=== PATIENT | female | born 2000 | race African-American/Black ===

== ENCOUNTER 2023-09-18 16:23 | Emergency (ER) | payer SELFPAY ==
[2023-09-18 16:25] VITALS: BP 143/101
[2023-09-18 16:57] VITALS: BP 131/73
[2023-09-18 17:30] LABS: % Basophils 0.7 % (0-2); % Eosinophils 1.3 % (0-6); % Immature Granulocytes 0.3 % (0-0.5); % Lymphocytes 45.2 % (20.5-51.1); % Monocytes 7.9 % (1.7-9.3); % Neutrophils 44.6 % (42.2-75.2); Absolute Basophils 0.1 10^3/uL (0-0.2); Absolute Eosinophils 0.1 10^3/uL (0-0.7); Absolute Lymphocytes 3.2 10^3/uL (1.2-3.4); Absolute Monocytes 0.6 10^3/uL (0.1-0.6); Absolute Neutrophils 3.2 10^3/uL (1.4-6.5); Hematocrit 39.1 % (37.0-47.0); Hemoglobin 13.6 g/dL (12.0-16.0); Mean Corp Hgb Conc. 34.8 g/dL (33.0-37.0); Mean Corpuscular Hgb 28.2 pg (27.0-31.0); Mean Corpuscular Volume 81.1 fL (81.0-99.0); Mean Platelet Volume 10.8 fL (7.4-10.4); Nucleated Red Blood Cells % 0 %; Platelet Count 236 10^3/uL (130-400); Red Blood Cell Count 4.82 10^6/uL (4.20-5.40); Red Cell Dist. Width 13.9 % (11.5-14.5); White Blood Cell Count 7.1 10^3/uL (4.8-10.8)
[2023-09-18 17:36] LABS: HCG, Serum Qualitative Screen Negative
[2023-09-18 17:40] LABS: ALT (SGPT) 19 U/L (0-35); AST (SGOT) 39 U/L (14-36); Albumin 4.8 g/dl (3.5-5.0); Alkaline Phosphatase 78 U/L (38-126); Blood Urea Nitrogen 9 mg/dl (7-17); Calcium 10.2 mg/dl (8.4-10.2); Carbon Dioxide 21 mmol/L (22-30); Chloride 107 mmol/L (98-107); Glucose 80 mg/dl (70-99); Potassium 3.4 mmol/L (3.5-5.1); Sodium 137 mmol/L (135-145); Total Bilirubin 1.4 mg/dl (0.2-1.3); Total Protein 7.6 g/dl (6.3-8.2); eGFR > 60.00
[2023-09-18] MEDS: NSS 1000 IV (17:43)
[2023-09-18 17:58] LABS: Creatine Phosphokinase 466 U/L (30-135)
[2023-09-18 18:05] VITALS: BP 138/85
[2023-09-18 18:45] LABS: D-Dimer 0.31 ug/mlFEU (0.00-0.50)
--- NOTE | 2023-09-18 18:45 | ED.GENMED ---
History of Present Illness
General
Chief Complaint: Breathing Problem
Source: patient
Exam Limitations: none
Time Seen by Provider: 09/18/23 16:46
Nursing documentation reviewed up to this point in time: agreed with
History of Present Illness
History of Present Illness:
23 y/o F
no sig pmh
but she has had some syncope in the past occasionally
here with tingling in hands and feet and feeling fatigued/lightheaded while workin gin the heat today
she says that she was feeling overheated, then got tingly and lowered herself to the ground, no syncope
went to her truck (130 pm) and ate and sat in the cool air
felt better for an hour before having another episode where she felt overheated, a little lightheaded, tingling and sob then says she thinks she passed out int he back of her truck
now feels better, still has some tingling in hands and feet and is nervous baout being in the ER
she denied drug/alcohol use to me but told rn that she uses marijuana and alcohol sometimes
not intoxicated
no h/o dvt/pe
no cp, sob, abdomianl pain, fever, chills, seizure history, weakness, neck pain, vision changes
Past History
Social History
Tobacco: Non-smoker
Alcohol: Occasional
Drug: Marijuana
Review of Systems
Review of Systems
Allergies reviewed?: Yes
All Other Systems: Not applicable
Phy Exam
Physical Exam
Physical Exam:
GENERAL: Alert , in no apparent distress, very wlel appearing
EYE: pupils equal and reactive
NECK: Supple
ENT: o/p clr, mmm.
CARDIAC: Regular rate and rhythm .no murmur
LUNGS: Clear breath sounds bilaterally, no acute respiratory distress, no wheezes/rales/rhonchi
ABDOMEN: Soft, without focal tenderness, no r/g, no cvat, normal bowel sounds
NEUROLOGICAL: Alert and oriented, no focal neuro deficits, sensation intact
SKIN: Warm and dry, skin intact.
MUSCULOSKELETAL: No edema, well perfused. neg shawn's sign
PSYCH: Normal and appropriate interaction.
Course
Orders/Labs/Results
Orders:
Orders
09/18/23 17:05
Test Result ONCE
09/18/23 17:07
CBC/With Diff [Complete Blood Count/With Diff] Urgent
CMP [Comprehensive Metabolic Panel] Urgent
Creatine Phosphokinase Urgent
Comment: ADD ON
HCG, Serum Qualitative Screen Urgent
Magnesium Urgent
Comment: ADD ON
09/18/23 17:16
0.9% Sodium Chloride 1000 ml [Nss] 1,000 ml IV BOLUS
09/18/23 17:17
Electrocardiogram (*1) Urgent
Reason for Study: Syncope
EKG- Treatment ONCE
09/18/23 17:44
Add On- LAB Urgent
Tests Added?: magnesium, cpk
09/18/23 18:03
D-Dimer Urgent
09/18/23 18:51
Potassium Chloride Powder [Klor-Con] 20 meq PO NOW STA
Abnormal Lab Results
09/18/23
17:07
MPV 10.8 H fL
(7.4-10.4)
Potassium 3.4 L mmol/L
(3.5-5.1)
Carbon Dioxide 21 L mmol/L
(22-30)
Total Bilirubin 1.4 H mg/dl
(0.2-1.3)
AST 39 H U/L
(14-36)
Creatine Kinase 466 H U/L
(30-135)
09/18/23 17:07
09/18/23 17:07
Vital Signs
Initial and Last Documented VS:
Initial Vital Signs
Temp Pulse Resp BP Pulse Ox
97.7 F 92 20 143/101 100
09/18/23 16:25 09/18/23 16:25 09/18/23 16:25 09/18/23 16:25 09/18/23 16:25
Last Documented Vital Signs
Temp Pulse Resp BP Pulse Ox
97.7 F 54 20 138/78 98
09/18/23 16:25 09/18/23 19:00 09/18/23 19:00 09/18/23 19:00 09/18/23 19:00
MDM/Problems Addressed
Differential Diagnosis Includes:
heat exhaustion, near syncope, orthostasis, electrolyte disturbance, PE
MDM/Problems Addressed:
23 y/o F with tingling/lightheaded and then near syncope/syncope today
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
she feels better now
no cardiac history
no fhx of cardiac issues
pt is wel appearing
neuro intact
no signs of trauma
cv normal
ekg nonsichemic sinus jaden with sinus arrhythmia
k 3.4 normal mag
cpk 400s
d dimer pending
will hydraate, give oral dose of potassium and likely d/c home\\
pt ate food, feels better
d/c home d dimer neg
*Critical Care Note
Total Time (30-74mins, 75-104mins- exclusive of procedures): Not Applicable
ED Attending Note
-
Portions of this chart may have been created with voice recognition software.� Occasional wrong word or��sound alike� substitutions may have occurred due to the inherent limitations of voice recognition software.
Discharge Plan
Departure
Patient Disposition: Home (Routine Discharge)
Date of Disposition: 09/18/23
Time of Disposition: 18:55
Patient with high blood pressure during this ER visit?: No
Condition: Fair
Covid-19: Not Applicable
Discharge Problem:
Near syncope, Heat exhaustion
Instructions: Near Fainting (DC), Heat Illness ED
Referrals:
Brent Olmedo CRNP [Family Provider] - Follow up in 2-3 days
Stand Alone Forms: Return to Work
Activity Restrictions/Additional Instructions:
You had a very slightly low potassium which could be from being a little dehydrated. We gave you a dose here. You can eat an avocado or banana daily to help maintain this. You also may have just had a bit of heat exhaustion. Make sure you stay
hydrated. If you feel lightheaded like that lower yourself to the ground and get yourself into a cool environment and eat
return for any concerns.
Interventions
Interventions:
*Risk Screen - Suicide Last Done: 09/18/23 16:25
*General Assessment Last Done: 09/18/23 16:25
*Neglect/Abuse Screening Last Done: 09/18/23 16:25
ED- Fall Risk Assessment Last Done: 09/18/23 17:09
*Nursing Disposition Last Done: 09/18/23 19:30
ED- Cardiac Assessment Last Done: 09/18/23 17:09
ED- Pulmonary Assessment Last Done: 09/18/23 17:09
Discharge Date and Time
Discharge Date/Time: 09/18/23 19:51
Print Language: SAMMARINESE
[2023-09-18 19:00] VITALS: BP 138/78
[2023-09-18] MEDS: KLOR-CON 20 MEQ PO (19:07)
== END 2023-09-18 19:51 | disposition home or self-care (01) ==
LOC: EMR 16:23
PROVIDERS: Physician Assistant; EMERGENCY PHYSICIAN Emergency Medicine; FAMILY PHYSICIAN Family Medicine
DX: R55 Syncope and collapse (principal); T67.5XXA Heat exhaustion, unspecified, initial encounter; R20.2 Paresthesia of skin
CPT/HCPCS: 99284; 96360; 80053; 82550; 83735; 84703; 85025; 85379; 93005